=== PATIENT | male | born 1965 | race Caucasian/White ===

== ENCOUNTER 2016-12-05 14:30 | Emergency (ER) | payer MEDICARE ==
[2016-12-05 14:53] VITALS: TEMP 98
[2016-12-05] MEDS ORDERED: Naproxen 550 mg Tab PO STA (16:07)
[2016-12-05] MEDS ORDERED: Naproxen 550 mg Tab PO ONE (16:12)
--- NOTE | 2016-12-05 16:37 | RAD ---
PROCEDURE: Radiographs of the left elbow. HISTORY: Pain/swelling s/p injury 1-2 weeks ago COMPARISON: No prior. FINDINGS: BONES: Bone alignment and mineralization are normal. There is no acute displaced fracture or bone destruction. JOINTS: Normal. No osteoarthritis. SOFT TISSUES: There is mild medial soft tissue swelling at the elbow joint. JOINT EFFUSION: None. OTHER FINDINGS: None IMPRESSION: No acute fracture, dislocation or joint effusion. Mild medial soft tissue swelling at the elbow joint.
[2016-12-05 16:56] VITALS: BP 155/90; PULSE 73; RESP 20; O2SAT 95
--- NOTE | 2016-12-05 17:00 | C.PDOC ---
History Of Present Illness Pt his his left elbow against something 1-2 weeks ago. Time Seen by Provider: 12/05/16 16:01 Chief Complaint (Nursing): Upper Extremity Problem/Injury History Per: Patient Onset/Duration Of Symptoms: Days (about 1-2 weeks ago) Current Symptoms Are (Timing): Still Present Quality: "Pain" Severity: Moderate Exacerbating Factor(s): Strenuous Use Of Affected Area Additional History Per: Prior Records Past Medical History Reviewed: Historical Data, Nursing Documentation, Vital Signs Vital Signs: Last Vital Signs Temp 98 F 12/05/16 16:55 Pulse 73 12/05/16 16:55 Resp 20 12/05/16 16:55 BP 155/90 H 12/05/16 16:55 Pulse Ox 95 12/05/16 16:55 - Medical History PMH: HTN Surgical History: Coronary Stent (8) Family History: States: Unknown Family Hx - Social History Hx Tobacco Use: Yes Hx Alcohol Use: Yes Hx Substance Use: Yes - Immunization History Hx Tetanus Toxoid Vaccination: Yes Hx Influenza Vaccination: No Hx Pneumococcal Vaccination: No Review Of Systems Except As Marked, All Systems Reviewed And Found Negative. Constitutional: Negative for: Fever, Weakness Cardiovascular: Negative for: Chest Pain Respiratory: Negative for: Shortness of Breath Gastrointestinal: Negative for: Vomiting, Abdominal Pain Musculoskeletal: Negative for: Neck Pain, Shoulder Pain Skin: Negative for: Rash Neurological: Negative for: Weakness, Numbness, Seizures, Altered Mental Status Physical Exam - Physical Exam Appears: Non-toxic, No Acute Distress Skin: Normal Color, Warm, Dry, No Rash Head: Atraumatic, Normacephalic Eye(s): bilateral: Normal Inspection, PERRL, EOMI Neck: Normal ROM, Supple Chest: Symmetrical, No Deformity Cardiovascular: Rhythm Regular Respiratory: Normal Breath Sounds, No Accessory Muscle Use Gastrointestinal/Abdominal: Soft, No Tenderness Back: No CVA Tenderness Extremity: Normal ROM, Capillary Refill (wnl), No Deformity, Swelling (of the olecrenon bursa. No erythema or warmth.) Extremity: Bilateral: Normal Color And Temperature Pulses: Left Radial: Normal Neurological/Psych: Oriented x3, Normal Motor, Normal Sensation ED Course And Treatment O2 Sat by Pulse Oximetry: 95 Pulse Ox Interpretation: Normal - Other Rad Left elbow x-rays X-Ray: Viewed By Me, Read By Radiologist Interpretation: IMPRESSION: No acute fracture, dislocation or joint effusion. Mild medial soft tissue swelling at the elbow joint. Progress Note: Pt place in a sling. Reassessment Condition: Improved Disposition Counseled Patient/Family Regarding: Studies Performed, Diagnosis, Need For Followup, Rx Given - Disposition Referrals: Rosendo Maldonado III, MD [Staff Provider] - Disposition: HOME/ ROUTINE Disposition Time: 17:01 Condition: STABLE Additional Instructions: Keep you left arm rested in the sling provided. Follow up with an orthopedic doctor within 1-2 weeks. Return to the ER if you develop redness, fever, worsening of symptoms or if you have any other concerns. Prescriptions: Naproxen [Naprosyn] 1 tab PO BID PRN #20 tab PRN Reason: Pain Instructions: Elbow Bursitis (ED) Forms: [facility] (Korean) - Clinical Impression Clinical Impression: Olecranon bursitis, left elbow
== END 2016-12-05 17:07 | disposition home or self-care (01) ==
LOC: C.ER 14:30
DX: M70.22 Olecranon bursitis, left elbow (principal)